=== PATIENT | female | born 2000 | race Caucasian/White ===

== ENCOUNTER → 2022-04-21 | Outpatient (CLI) | payer OTHER ==
[~2022-04-21] MED LIST: PROHANCE 279.3MG/ML 5ML VIAL As Ordered ONE
== END ==
LOC: M RAD 12:31
PROVIDERS: ATTEND Obstetrics & Gynecology
DX: D35.2 Benign neoplasm of pituitary gland (principal); E22.1 Hyperprolactinemia; N91.2 Amenorrhea, unspecified
CPT/HCPCS: 70553; A9576

== ENCOUNTER 2022-11-24 19:56 | Emergency (ER) | payer OTHER ==
[~2022-11-24] VITALS: Ht 154.9 cm; Wt 85.4 kg
[2022-11-24 19:57] VITALS: BP 126/83; TEMP 97; O2SAT 98
== END 2022-11-24 22:30 | disposition left against medical advice (07) ==
LOC: M ED 19:56
DX: Z53.21 Procedure and treatment not carried out due to patient leaving prior to being seen by health care provider (principal)

== ENCOUNTER → 2024-02-09 | Outpatient (CLI) | payer OTHER ==
[~2024-02-09] MED LIST changes: -PROHANCE 279.3MG/ML 5ML VIAL As Ordered ONE; +PROHANCE 279.3MG/ML 5ML VIAL ONE
== END ==
LOC: M PLAIMG 07:36
PROVIDERS: ATTEND Internal Medicine
DX: Z86.018 Personal history of other benign neoplasm (principal)
CPT/HCPCS: 70553; A9576

== ENCOUNTER 2024-06-25 08:45 | Emergency (ER) | payer OTHER ==
[~2024-06-25] VITALS: Ht 157.5 cm; Wt 83.5 kg
[2024-06-25 08:57] VITALS: BP 148/94; TEMP 96.9; O2SAT 97
== END 2024-06-25 11:12 | disposition left against medical advice (07) ==
LOC: M ED 08:45
DX: Z53.21 Procedure and treatment not carried out due to patient leaving prior to being seen by health care provider (principal)